=== PATIENT | female | born 1965 ===

== ENCOUNTER 2024-11-01 13:53 | Emergency (ER) | payer BC, OTHER, SELFPAY ==
--- NOTE | 2024-11-01 14:12 | PC.NURSE ---
pt to leave, to go to [facility].
== END 2024-11-01 14:21 | disposition left against medical advice (07) ==
LOC: ANHED 14:18
DX: Z53.21 Procedure and treatment not carried out due to patient leaving prior to being seen by health care provider (principal)
CPT/HCPCS: 99199